=== PATIENT | female | born 2000 | race Caucasian/White ===

== ENCOUNTER 2022-10-01 12:04 | Outpatient (CLI) | payer OTHER | END 2022-10-01 12:05 | disposition home or self-care (01) | LOC: CSHRAD 12:04 | PROVIDERS: ATTEND Student in an Organized Health Care Education/Training Program | DX: Z13.828 Encounter for screening for other musculoskeletal disorder (principal); M41.85 Other forms of scoliosis, thoracolumbar region | CPT/HCPCS: 72081 ==